=== PATIENT | female | born 1970 | race Hispanic/Latino ===

== ENCOUNTER 2023-03-09 07:45 | Day surgery (SDC) | payer BC ==
[2023-03-04 12:07] LABS: Absolute Lymphocytes (CBC) 2.1 K/uL (0.7-4.9); Hematocrit 41.6 % (36.0-45.0); Lymphocytes % 33.2 % (15.3-44.8); MCV 84.3 fL (80-100); MPV 8.3 fL (7.6-11.3); Platelets 186 thou/uL (152-406); RBC Red Blood Cell Count 4.94 M/uL (3.86-4.86)
[2023-03-04 12:27] LABS: Albumin 3.5 g/dL (3.4-5.0); Bilirubin Direct 0.1 mg/dL (0-0.2); Bilirubin Indirect, Calculated 0.4 mg/dL (0.2-0.8); Bilirubin Total 0.5 mg/dL (0.2-1.0); Potassium 3.4 mEq/L (3.5-5.1); Protein, Total 7.7 g/dL (6.4-8.2)
--- NOTE | 2023-03-04 12:31 | RAD REPORT ---
EXAM DESCRIPTION: RAD - Chest Pa And Lat (2 Views) - 03/04/2023 12:15 pm CLINICAL HISTORY: pre op for surgery. Hypertension COMPARISON: CHEST PA AND LAT 2 VIEW dated 03/21/2013 TECHNIQUE: PA and lateral views of the chest were obtained. FINDINGS: The lungs are clear. Heart size is normal and central vasculature is within normal limits. No pleural effusion or pneumothorax seen. No acute bony finding noted. IMPRESSION: No acute cardiopulmonary process.
[2023-03-09] MEDS ORDERED: Ringers Lactate 1,000 ML IV ONE (08:16)
[2023-03-09] MEDS ORDERED: CIPROFLOXACIN 400mg IV 400 MG/200 ML BAG IV ONE (08:51)
[2023-03-09] MEDS ORDERED: FENTANYL CITR 100 MCG/2 ML ONE (08:55)
[2023-03-09] MEDS ORDERED: LIDOCAINE 2% MPF 5 ML VIAL ONE (08:55)
[2023-03-09] MEDS ORDERED: propofoL 200 MG/20 ML VIAL IV ONE (08:55)
[2023-03-09] MEDS ORDERED: ROCURONIUM 50 MG/5 ML VIAL IV ONE (08:55)
[2023-03-09] MEDS ORDERED: MIDAZOLAM HCL 2 MG/2 ML INJ ONE (08:58)
[2023-03-09] MEDS ORDERED: ONDANSETRON 4 MG/2 ML VIAL ONE ×3 (08:58→11:44)
[2023-03-09] MEDS ORDERED: KETOROLAC 30 MG/ML INJ ONE (09:36)
[2023-03-09] MEDS ORDERED: dexAMETHasone 4 MG/ML VIAL ONE (09:36)
[2023-03-09] MEDS ORDERED: NEOSTIGMINE 1 MG/ML -10 ML VIAL ONE (10:10)
[2023-03-09] MEDS ORDERED: GLYCOPYRROLATE 0.2 MG/ML SYR ONE (10:10)
[2023-03-09] MEDS ORDERED: Mastisol Adhesive Liq ONE (10:14)
--- NOTE | 2023-03-09 10:18 | P.BOP ---
Preoperative diagnosis: acute cholecystitis, symptomatic cholelithiasis Postoperative diagnosis: same Primary procedure: Laparoscopic cholecystectomy Manager Corporate: Jes Joya ([place]) Estimated blood loss: <10cc Specimen: gb Findings: as above Anesthesia: General Complications: None Transferred to: Recovery Room Condition: Good
[2023-03-09 11:18] VITALS: BP 128/79; TEMP 97.9; O2SAT 98
[2023-03-09] MEDS ORDERED: CODEINE 30MG/APAP 300MG TAB ONE (12:44)
--- NOTE | 2023-03-09 14:04 | OP ---
Date of Procedure: 03/09/2023 Surgeon: Carlos Barber MD Clinical Faculty: JOIE Wolfe. Preoperative Diagnoses: Acute cholecystitis, symptomatic cholelithiasis, right upper quadrant abdomi nal pain. Postoperative Diagnoses: Acute cholecystitis, symptomatic cholelithiasis, right upper quadrant abdom inal pain. Procedure: Laparoscopic cholecystectomy. Estimated Blood Loss: Less than 10 mL. Specimen: Gallbladder. Anesthesia: General plus local. Indication: This is a case of a female, who comes to us with above diagnoses. Fully explained the b enefits, alternatives, and risks of laparoscopic possible open cholecystectomy, which include, but no t limited to infection, bleeding, damage to adjacent structures, anesthesia complication, choledochol ithiasis, bile leak, pancreatitis, MD, and even . They also understand this may not relieve sym ptoms. She might need more than one surgical intervention. She understood and signed the consent. Description Of Procedure: The patient was brought to the operating room and placed in supine positio n. Anesthesia was done without complication. Abdominal area was prepped and draped in sterile fashi on. Local anesthesia was applied followed by sharp incision of the skin in the infraumbilical region . Incision was carried down to fascia, which was opened under direct vision. Peritoneum was encount ered and opened under direct vision. Vicryl #1 was placed inside the fascia. Abelino trocar was care fully introduced. No bleeding was obtained. I placed 3 more trocars, 5 mm each, one of them in the epigastric right upper quadrant area under direct visualization. This allowed me to put a grasper in the fundus of the gallbladder. Another grasper in the infundibulum, retracting the gallbladder in t he inferolateral fashion exposing the triangle of Calot, obtaining critical view. There were few adh esions to the omentum to the gallbladder which were carefully removed. At that moment, I proceeded t o remove it. Once again, the gallbladder was placed in the inferolateral fashion exposing the triang le of Calot, obtaining critical view. Cystic duct and cystic artery were cleared circumferentially a nd a connection between those and the gallbladder was clearly identified. I proceeded to ligate thos e by using at least 3 clips proximal, 1 clip distal, ligation in middle. Same was done with the cyst ic artery. A small little branch of the cystic artery was also ligated. Hepatic arteries and common bile duct were protected at all times. The gallbladder was removed from liver using Bovie cauterize r and removed from abdominal cavity using EndoCatch through umbilical incision. The area was inspect ed once again. No bile leak. No bleeding. At that moment, I proceeded to remove the trocars under direct vision. Deflated the pneumoperitoneum. Closed the fascia with 1 Vicryl, irrigated subcutaneo us tissue, closed with 3-0 chromic, and skin in a subcuticular fashion with 3-0 chromic and Steri-Str ips on top. Sponge count and instrument counts correct. The patient tolerated the procedure well. The patient was sent to recovery in stable condition. DORIAN/JESSICA Voice ID: [id number] Report ID: [id number]
--- NOTE | 2023-03-09 14:10 | DS ---
Diagnoses: Acute cholecystitis, symptomatic cholelithiasis. Procedure: Laparoscopic cholecystectomy. Disposition: Home. Activity: As tolerated. No heavy lifting. Follow up in my office in 1 week. Call for appointment at [phone]. Keep area dry for 48 hours, then may shower. Keep Steri-Strip intact. DORIAN/JESSICA Voice ID: [id number] Report ID: [id number]
== END 2023-03-09 13:00 | disposition home or self-care (01) ==
LOC: OR 07:45
PROVIDERS: ATTEND Surgery
PROC: 0FT44ZZ Resection of Gallbladder, Percutaneous Endoscopic Approach (ICD-10-PCS; principal; 2023-03-09 09:15)
DX: K80.12 Calculus of gallbladder with acute and chronic cholecystitis without obstruction (principal); R10.11 Right upper quadrant pain; F32.A Depression, unspecified; F41.9 Anxiety disorder, unspecified; K21.9 Gastro-esophageal reflux disease without esophagitis
CPT/HCPCS: 93005; 85025; 80048; 36415; 80076; 88304; 83690; 71046; 47562; J2704; J1100; J2710; J2001; J2250; J3010; J2405 ×2; J0744; J7120